=== PATIENT | female | born 1950 | race Hispanic/Latino ===

== ENCOUNTER 2017-05-26 09:39 | Emergency (ER) | payer MEDICARE ==
[~2017-05-26] VITALS: Ht 157.5 cm; Wt 65.8 kg
--- NOTE | 2017-05-26 10:34 | Diagnostic Imaging Report ---
PROCEDURE: X-RAY CHEST, TWO VIEWS COMPARISON: None. INDICATIONS: COUGH, BODY ACHES, CHEST PAIN FINDINGS: LUNGS: No consolidations or edema. PLEURA: No effusions or pneumothorax. HEART \T\ MEDIASTINUM: The heart is within normal size-limits. Mild atherosclerotic calcification of the aortic arch. BONES \T\ SOFT TISSUES: No acute findings. CONCLUSION: No acute thoracic abnormality. Dictated by: Emiliano Henley M.D. on 05/26/2017 at 10:42 Electronically approved by: Emiliano Henley M.D. on 05/26/2017 at 10:42
[2017-05-26 14:00] VITALS: BP 161/87
== END 2017-05-26 14:05 | disposition home or self-care (01) ==
LOC: ER 09:39
DX: R50.9 Fever, unspecified (principal); R05 Cough; B34.9 Viral infection, unspecified
CPT/HCPCS: 71020; 87400; 99283

== ENCOUNTER 2018-04-18 17:38 | Emergency (ER) | payer MEDICARE ==
[~2018-04-18] VITALS: Ht 157.5 cm; Wt 70.3 kg
--- OUTSIDE RECORDS SUMMARY | 2018-04-18 17:42 | XMS REPORT ---
Author Author [facility] Address Unknown Phone Unavailable Care Team Providers Care Health And Safety Manager Name Role Phone Rafi SRINIVASAN Unavailable Unavailable Problems This patient has no known problems. Allergies, Adverse Reactions, Alerts This patient has no known allergies or adverse reactions. Medications This patient has no known medications. Results Test Description Test Time Test Comments Text Results Atomic Results Result Comments CHEST 2 VIEWS [place] [address] Patient Name: YASSINE RIVAS MR #: [id number] : 1950 Age/Sex: 66/F Req #: [id number] Adm Physician: Ordered by: PARIS SRINIVASAN MD Report #: [id number] Location: ER Room/Bed: Procedure: [id number] DX/CHEST 2 VIEWS Exam Date: 05/26/17 Exam Time: 1020 REPORT STATUS: Signed PROCEDURE: X-RAY CHEST, TWO VIEWS COMPARISON: None. INDICATIONS: COUGH, BODY ACHES, CHEST PAIN FINDINGS: LUNGS: No consolidations or edema. PLEURA: No effusions or pneumothorax. HEART T MEDIASTINUM: The heart is within normal size-limits. Mild atherosclerotic calcification of the aortic arch. BONES T SOFT TISSUES: No acute findings. CONCLUSION: No acute thoracic abnormality. Dictated by: Ruba Read M.D. on 05/26/2017 at 10:42 Electronically approved by: Ruba Read M.D. on 05/26/2017 at 10:42 Dictated By: RUBA READ MD 104 Transcribed By: EDVIN on 05/26/171041 COPY TO: PARIS SRINIVASAN MD
[2018-04-18] MEDS ORDERED: HYDROCODONE/APAP 5MG-325MG TAB PO ONE (20:30)
[2018-04-18] MEDS ORDERED: ONDANSETRON HCL 4 MG ORAL DISINTEGRATING TAB PO ONE (20:30)
--- NOTE | 2018-04-18 21:15 | Diagnostic Imaging Report ---
EXAMINATION: Head and cervical spine CT without contrast. HISTORY: Status post fall, trauma, left-sided swelling COMPARISON: None. TECHNIQUE: Multidetector axial images were obtained without contrast from the foramen magnum to the vertex and through the cervical spine. The images were reconstructed using brain and bone algorithms. Thin section brain images were reformatted into coronal and sagittal planes. Dose modulation, iterative reconstruction, and/or weight based adjustment of the mA/kV was utilized to reduce the radiation dose to as low as reasonably achievable. HEAD CT FINDINGS: Skull: No lytic or blastic lesions. No fractures. Parenchyma: A few scattered matter hypodensities, most likely nonspecific chronic microvascular ischemic changes. No mass, hemorrhage or CT evidence of acute vascular insult. Brain volume: Normal for age. Ventricles: No hydrocephalus or displacement. Arteries: No density suggestive of thrombus. Dural sinuses: No abnormal density. Extra-axial spaces: No abnormal density. Foramen magnum: No mass, Chiari malformation, or basilar invagination. Sella: No obvious mass. Paranasal/mastoid sinuses: Imaged portions unremarkable. CERVICAL SPINE CT FINDINGS: Alignment: Mild reversal of the cervical lordosis from C4 to C7. Minimal anterolisthesis at C4-C5 anterolisthesis at C6-7. Soft tissues: Normal. Vertebrae: Normal height and density. No acute fracture, infection or neoplasm. Degenerative changes: C1-C2: Normal C2-C3: Normal C3-C4: Uncovertebral hypertrophy from the left. Severe left foraminal stenoses. C4-C5: Disc osteophyte complex formation asymmetric to the left, prominent uncovertebral and facet arthrosis on the left side. Mild spinal canal and severe left foraminal stenosis. C5-C6: Disc osteophyte complex formation, uncovertebral and facet arthrosis. Moderate spinal canal and bilateral foraminal stenoses. C6-C7: Disc osteophyte complex formation, bilateral uncovertebral and facet arthrosis. Moderate spinal canal and [id number] bilateral foraminal stenoses. C7-T1: Normal IMPRESSION: Head CT: 1. No acute postraumatic intracranial hemorrhage. 2. Mild chronic microvascular ischemic changes. Cervical spine CT: 1. No acute fractures or dislocations. 2. Chronic degenerative changes as described. Note: Acute post traumatic spinal cord, vascular or ligamentous injury cannot adequately be assessed with CT. Signed by: Dr. Lashay Clark M.D. on 04/18/2018 9:11 PM
--- NOTE | 2018-04-18 21:42 | Diagnostic Imaging Report ---
EXAM: HAND 3+ VIEWS LEFT, WRIST COMPLETE LEFT, AP, lateral and oblique INDICATION: Fall, pain, swelling COMPARISON: None FINDINGS: BONES: Mildly displaced, impaction type intra-articular fracture of the distal radius. Acute mildly displaced fracture of the ulnar styloid process. Diffuse bone demineralization. JOINTS: No malalignment. SOFT TISSUES: Soft tissue swelling of the wrist. IMPRESSION: Mildly displaced, impaction type intra-articular fracture of the distal radius. Acute mildly displaced fracture of the ulnar styloid process. Signed by: Dr. Kaur Abdul M.D. on 04/18/2018 9:39 PM
--- NOTE | 2018-04-18 21:43 | Diagnostic Imaging Report ---
EXAM: PELVIS AP 1-2 VIEWS INDICATION: Fall COMPARISON: None FINDINGS: BONES: No acute fractures. JOINTS: No malalignment. Degenerative changes L5/S1. SOFT TISSUES: Normal IMPRESSION: No pelvic fracture. Signed by: Dr. Kaur Abdul M.D. on 04/18/2018 9:40 PM
--- NOTE | 2018-04-18 21:45 | Diagnostic Imaging Report ---
EXAM: LUMBAR SPINE, 5 views INDICATION: Fall, back pain COMPARISON: None FINDINGS: BONES: Five lumbar-type vertebral bodies. The alignment is within normal limits. Chronic appearing mild loss of the L1 and L2 vertebral bodies. No lytic or blastic lesions. DISCS: Degenerative disc predominantly at L1/L2 and lower thoracic spine. JOINTS: Bilateral facet arthropathy L5/S1, worse on the right. SOFT TISSUES: Unremarkable IMPRESSION: No acute lumbar spine radiographic findings. Signed by: Dr. Kaur Abdul M.D. on 04/18/2018 9:42 PM
== END 2018-04-18 22:38 | disposition home or self-care (01) ==
LOC: ER 17:38
DX: S52.355A Nondisplaced comminuted fracture of shaft of radius, left arm, initial encounter for closed fracture (principal); S52.615A Nondisplaced fracture of left ulna styloid process, initial encounter for closed fracture; S30.0XXA Contusion of lower back and pelvis, initial encounter; W01.0XXA Fall on same level from slipping, tripping and stumbling without subsequent striking against object, initial encounter; Y93.41 Activity, dancing; Y92.511 Restaurant or cafe as the place of occurrence of the external cause
CPT/HCPCS: 29125; 70450; 72110; 72125; 72170; 73110; 73130; 99283; Q0162